=== PATIENT | female | born 1945 | race Caucasian/White ===

== ENCOUNTER 2025-07-09 08:51 | Emergency (ER) | payer MEDICARE ==
[~2025-07-09] VITALS: Ht 162.6 cm; Wt 59.0 kg
--- NOTE | 2025-07-09 09:07 | Physician Documentation ---
History of Present Illness General Chief Complaint: Weakness Stated Complaint: WEAKNESS Time Seen by MD: 09:05 Source: patient Mode of Arrival: EMS History of Present Illness Initial Comments 79F with PMH HTN, COPD, UTI, CKD stage II, breast cancer, brought in by EMS for 3 days of progressive weakness. She was diagnosed with a UTI last week and given antibiotics, but did not start them until Wednesday. Since then she has had progressive weakness, loss of appetite, and felt fatigued. She has been trying to drink fluids. She endorses fever, chills, diaphoresis, urinary frequency, urinary incontinence, abdominal discomfort, frequent diarrhea, and occasionally feeling her heart race. She states she feels cold. She also endorses some confusion as of this morning. She denies SOB, chest pain, nausea, vomiting. Timing/Duration: days Medication Reconciliation Allergies: Coded Allergies: gluten (Verified Allergy, Unknown, 07/09/25) Past Medical History Past Medical History: Vertigo, Hypertension, COPD (well-controlled), Chronic Kidney Disease (stage II), UTI, Breast Cancer Other Past Medical History: chronic pruritis Review of Systems All Other Systems at this time: Reviewed and Negative Physical Exam Physical Exam Vital Signs: Temperature: 99.4, Source: Oral, Heart Rate: 106, Respiratory Rate: 14, BP: 172/91, Pulse Oximetry: 92, Weight: 59.000 Oxygen Flow Rate: 0 Physical Exam VITALS: Reviewed and as above. GENERAL: Alert, appears dry. HEENT: Normocephalic, atraumatic, PERRL, EOMI, dry mucosa, no erythema RESPIRATORY: Lungs clear, normal breath sounds, no respiratory distress. CHEST: No accessory muscle use, no retractions CV: Regular rate, rhythm, no edema, no murmur, No: JVD. Tachycardia GI: Soft, no rebound, guarding, or rigidity. Tenderness to deep palpation BACK: No CVA tenderness, or swelling MUSCULOSKELETAL No deformities, no edema SKIN: Excoriations & crusting on bilateral lower extremities, from ankles up to the level of the mid-bloom, erythematous, no edema. NEURO: Oriented x4, No motor or sensory deficit PSYCH: Normal mood and affect, no agitation Progress Results/Orders Results/Orders Orders - OHLJOSE MIGUEL DUENAS MD Electrocardiogram (07/09/25 09:01) Chest,Single View (07/09/25 12:18) Completed Orders - OHLFSJOSE MIGUEL MD Cbc/Diff (07/09/25 09:34) BMP (07/09/25 09:34) Normal Saline 1000ml (0.9% Sodium Chlori (07/09/25 09:35) Procalcitonin (07/09/25 09:34) Ceftriaxone/V8i-Wfokbfza 1gm (Rocephin 1 (07/09/25 09:35) Electrocardiogram (07/09/25 09:01) Normal Saline 1000ml (0.9% Sodium Chlori (07/09/25 12:20) Chest,Single View (07/09/25 12:18) Ua W/Microscopic, Cult If Ind (07/09/25 12:38) Vital Signs 07/09/25 07/09/25 07/09/25 07/09/25 08:54 09:53 10:40 12:33 Temp 99.4 Pulse 106 97 92 Resp 14 18 22 16 B/P (MAP) 172/91 158/65 (96) 165/85 (111) Pulse Ox 92 93 96 O2 Flow Rate 0 0 0 07/09/25 15:25 Temp 98.6 Pulse 72 Resp 16 B/P (MAP) 134/78 Pulse Ox 99 Laboratory Tests Test 07/09/25 09:38 07/09/25 12:38 White Blood Count 7.6 Red Blood Count 4.47 Hemoglobin 14.3 Hematocrit 42.1 Mean Corpuscular Volume 94.2 Mean Corpuscular Hemoglobin 32.0 H Mean Corpuscular Hemoglobin Concent 34.0 Red Cell Distribution Width 14.5 Platelet Count 176 Mean Platelet Volume 9.1 Neutrophils (%) (Auto) 84.7 H Lymphocytes (%) (Auto) 4.7 L Monocytes (%) (Auto) 8.6 Eosinophils (%) (Auto) 1.5 Basophils (%) (Auto) 0.5 Neutrophils # (Auto) 6.4 Lymphocytes # (Auto) 0.4 L Monocytes # (Auto) 0.7 Eosinophils # (Auto) 0.1 Basophils # (Auto) 0.0 CBC Comment Sodium Level 139 Potassium Level 4.1 Chloride Level 102 Carbon Dioxide Level 26.9 Anion Gap 10 Blood Urea Nitrogen 17 Creatinine 1.12 H Estimated GFR/1.73 m2 47 BUN/Creatinine Ratio 15.2 Glucose Level 105 H Calcium Level 9.3 Albumin 3.8 Procalcitonin < 0.05 Chemistry Comments Urine Specimen Description Cln catch midstream Urine Color Yellow Urine Clarity Clear Urine pH 6.0 Urine Specific [place] 1.015 Urine Protein Negative Urine Glucose (UA) Negative Urine Ketones 15 H Urine Occult Blood Large H Urine Nitrite Negative Urine Bilirubin Negative Urine Urobilinogen 0.2 Urine Leukocyte Esterase Negative Urine RBC 3-10 Urine WBC 0-4 Urine Squamous Epithelial Cells Many Urine Transitional Epithelial Cells Few Urine Bacteria Few Urine Mucus Few Urine Culture Indicated Not ind Volume Urine Centrifuged 10 ml Urine Comment EKG/XRAY/CT/US/VASC/MRI Chest X-Ray : Additional Comments [address] [place], [place] - [address] DIAGNOSTIC RADIOLOGY Patient: AIDAN URIBE Medical Record: [id number] [facility] : 1945, Age: 79 Sex: Female Location: ER Patient Status: [facility] ER Service Date/Time: 07/09/25/ 8 Ordering Physician: JOSE MIGUEL HOPE MD Exam: CHEST,SINGLE VIEW DI CHEST,SINGLE VIEW, HISTORY: sob COMPARISON: None None TECHNICAL DATA: 1 view of the chest was obtained. FINDINGS: Lines and tubes: None Cardiomediastinal silhouette: normal Pulmonary vasculature: normal Lung expansion: normal Lung airspace: normal Lung interstitium: normal Pleura: normal Pneumothorax: no Bones: Unremarkable Other: no IMPRESSION: No acute intrathoracic abnormality. Electronically Signed by:FROYLAN MORTON MD Date & Time: 07/09/251244 Dictated by: FROYLAN MORTON MD Dictation date and time: 07/09/25 122 Primary Care Provider: NO PRIMARY CARE PROVIDER cc: JOSE MIGUEL HOPE MD ~ Medical Decision Making Additional information obtaine: old records Findings The patient is a [age]-year-old female who was diagnosed with a UTI a week ago who was brought in for weakness, the patient was clinically dehydrated she was hydrated in the emergency department and she was also given a dose antibiotics for her UTI, her labs were unremarkable the patient is comfortable and in no distress and at this point has improved, her urine does not show active infection in her labs were unremarkable. The patient's pulse oximetry was interpreted as normal and adequate the patient the patient's prior hospitalizations has been reviewed the patient will be discharged with instructions to follow up as an outpatient. And return for worsening of her symptoms. The patient's quality assurance monitor was interpreted as a sinus rhythm and the patient's pulse oximetry was interpreted as normal and adequate. The patient's EKG was interpreted as a sinus rhythm with a rate of [address] abnormalities. With a normal axis, the patient's EKG was interpreted as a borderline EKG. Differential Diagnosis UTI, pneumonia, sepsis, hypokalemia Departure Disposition: 01 HOME / SELF CARE / HOMELESS Impression: Primary Impression: Dehydration Condition: Fair Discharge Instructions: Dehydration, Adult Referrals: NO PRIMARY CARE PROVIDER (PCP) Signature Scribe Signature: No scribe Attestation: The note accurately reflects work and decisions made by me.Jose Miguel Hope MD 07/10/25 07:00 JOSE MIGUEL HOPE MD Jul 09, 2025 09:07
[2025-07-09 09:55] LABS: MEAN PLATELET VOLUME 9.1 FL (7.4-10.4); RED CELL DISTRIBUTION WIDTH 14.5 % (11.5-14.5)
[2025-07-09 09:57] LABS: CREATININE 1.12 MG/DL (0.40-0.90); TOTAL CARBON DIOXIDE 26.9 MMOL/L (24-32); eCRCL 36 ML/MIN; eGFR 47 ML/MIN
[2025-07-09] MEDS: normal saline 1000ML IV soln IVB ONE ×2 (10:37→12:30)
[2025-07-09] MEDS: CefTRIAXone/D5W-Rocephin 1gm 50 ML IV ONE (10:37)
--- NOTE | 2025-07-09 11:07 | ELECTROCARDIOGRAPH REPORT ---
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 AMANUEL Singh Measurements Intervals [place] Rate: 103 P: 80 RI: 189 QRS: 61 QRSD: 88 T: 72 QT: 336 QTc: 440 Interpretive Statements Sinus tachycardia Probable left atrial enlargement Baseline wander in lead(s) V1 Electronically Signed On 07-09-2025 17:35:[address] AMANUEL Singh Please click the below link to view image of tracing.
[2025-07-09 12:47] LABS: LEUKOCYTE ESTERASE ,URINE NEGATIVE (Neg); NITRITES, URINE NEGATIVE (Neg); OCCULT BLOOD,URINE LARGE (Neg)
--- NOTE | 2025-07-09 12:48 | RADIOLOGY REPORT ---
DI CHEST,SINGLE VIEW, HISTORY: sob COMPARISON: None None TECHNICAL DATA: 1 view of the chest was obtained. FINDINGS: Lines and tubes: None Cardiomediastinal silhouette: normal Pulmonary vasculature: normal Lung expansion: normal Lung airspace: normal Lung interstitium: normal Pleura: normal Pneumothorax: no Bones: Unremarkable Other: no IMPRESSION: No acute intrathoracic abnormality.
[2025-07-09 12:53] LABS: UA COLLECTION TYPE CLN CATCH MIDSTREAM
[2025-07-09 12:59] LABS: MUCUS STRANDS FEW /LPF (Neg); SQUAMOUS EPITHELIAL CELL,UR MANY /LPF (FEW)
[2025-07-09 15:25] VITALS: BP 134/78; PULSE 72; RESP 16; TEMP 98.6; O2SAT 99
== END 2025-07-09 15:27 | disposition home or self-care (01) ==
LOC: ER 08:53
DX: E86.0 Dehydration (principal); I12.9 Hypertensive chronic kidney disease with stage 1 through stage 4 chronic kidney disease, or unspecified chronic kidney disease; N18.2 Chronic kidney disease, stage 2 (mild); J44.9 Chronic obstructive pulmonary disease, unspecified; Z85.3 Personal history of malignant neoplasm of breast; Z87.440 Personal history of urinary (tract) infections
CPT/HCPCS: 36415; 71045; 80048; 81001; 84145; 85025; 93005; 96361; 96365; 99285; J0696; J7030

== ENCOUNTER 2025-08-08 12:47 | Emergency (ER) | payer MEDICARE ==
[~2025-08-08] VITALS: Ht 162.6 cm; Wt 65.9 kg
[2025-08-08 13:21] VITALS: TEMP 99.5
--- NOTE | 2025-08-08 13:21 | ELECTROCARDIOGRAPH REPORT ---
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 Fanny Rai Measurements Intervals [place] Rate: 88 P: 79 W[place]: 160 QRS: 50 QRSD: 90 T: 40 QT: 359 QTc: 435 Interpretive Statements Sinus rhythm Electronically Signed On 08-08-2025 18:10:[address] Fanny Rai Please click the below link to view image of tracing.
[2025-08-08 13:41] LABS: MEAN PLATELET VOLUME 8.9 FL (7.4-10.4); RED CELL DISTRIBUTION WIDTH 14.9 % (11.5-14.5)
--- NOTE | 2025-08-08 13:41 | RADIOLOGY REPORT ---
EXAM: DI CHEST,SINGLE VIEW HISTORY: CP TECHNIQUE: 1 view of the chest COMPARISON: DI CHEST,SINGLE VIEW on DOS: 07/09/25 FINDINGS/IMPRESSION: LUNGS: No pleural effusion, consolidation, or pneumothorax. MEDIASTINUM: Unremarkable. BONES: No acute osseous abnormality. OTHER: None.
--- NOTE | 2025-08-08 14:07 | Physician Documentation ---
History of Present Illness General Chief Complaint: Mechanical Fall Stated Complaint: FALL Time Seen by MD: 14:01 History of Present Illness Initial Comments 79F with PMH HTN, COPD, UTI, CKD stage II, breast cancer, brought in by EMS for evaluation status post mechanical fall while she was getting herself off the couch. Reports she had socks on his slipped on the hardwood floor. Landed on her bump. There was no loss of consciousness. Was able to get back up so she activated 911. Patient has a excoriated lesions to pyelo extremities which she states she has the being managed. Additionally has a secondary complaint of a sore throat. No recent myalgias, fevers or rigors. She is accompanied to Emergency Department with her daughter. Medication Reconciliation Allergies: Coded Allergies: gluten (Verified Allergy, Unknown, 08/08/25) Past Medical History Past Medical History: Vertigo, Hypertension, COPD, Chronic Kidney Disease, UTI, Breast Cancer Physical Exam Physical Exam Vital Signs: RN Vital Signs have been reviewed: Yes, Temperature: 99.5, Source: Oral, Heart Rate: 86, Respiratory Rate: 17, BP: 168/73, Pulse Oximetry: 94, Weight: 65.910 Oxygen Flow Rate: 0 General Appearance: alert, WD/WN, no apparent distress Head: normal inspection Face: normal inspection Pupils/EOM/Fundus: PERRLA Nose: normal inspection Oropharynx: normal inspection Neck: non-tender Respiratory: lungs clear Chest: no accessory muscle use Gastrointestinal: non-tender Back: normal inspection Extremities: normal range of motion, normal capillary refill, pelvis stable, other (Leg length discrepancies and no pelvic pain) Neurologic: oriented x4 Motor / Sensory: no motor deficit, no sensory deficit Psychiatric: normal mood/affect Skin: normal color, other (Bilateral lower extremity excoriated lesions with erythema) Progress Results/Orders Results/Orders Orders - AMBAR CHAAP Cult Throat + R/O Beta Strep (08/08/25 15:31) Hs Troponin I W Calculations (08/08/25 16:20) Completed Orders - AMBAR CHAPA Metoprolol Succinate Er Tablet (Toprol X (08/08/25 14:15) Doxycycline 100mg Capsule (Vibramycin 10 (08/08/25 14:15) Strep A Rapid (08/08/25 14:15) Medications Received in ER Medications (Trade) Dose Ordered Sig/Selvin Route PRN Reason Start Time Stop Time Status Last Admin Dose Admin (Toprol XL (24-hour) tablet) 50 mg ONCE STAT PO 08/08/25 14:15 08/08/25 14:20 DC 08/08/25 15:03 50 MG (VIBRAMYCIN 100mg capsule) 100 mg ONCE STAT PO 08/08/25 14:15 08/08/25 14:20 DC 08/08/25 15:03 100 MG Vital Signs 08/08/25 08/08/25 08/08/25 08/08/25 13:03 13:21 14:17 14:18 Temp 99.4 99.5 Pulse 94 86 89 Resp 18 17 12 16 B/P (MAP) 164/80 168/73 (104) 167/79 (108) Pulse Ox 94 94 95 O2 Flow Rate 0 0 FiO2 21 08/08/25 08/08/25 08/08/25 14:18 15:18 15:41 Pulse 89 85 Resp 19 15 B/P (MAP) 183/71 (108) 163/74 (103) Pulse Ox 94 95 94 O2 Delivery Room Air* O2 Flow Rate 0 0 0 FiO2 21 21 Laboratory Tests Test 08/08/25 13:32 08/08/25 13:59 08/08/25 14:10 08/08/25 14:55 White Blood Count 5.5 Red Blood Count 4.41 Hemoglobin 13.8 Hematocrit 41.0 Mean Corpuscular Volume 93.0 Mean Corpuscular Hemoglobin 31.4 H Mean Corpuscular Hemoglobin Concent 33.7 Red Cell Distribution Width 14.9 H Platelet Count 184 Mean Platelet Volume 8.9 Neutrophils (%) (Auto) 71.2 Lymphocytes (%) (Auto) 13.8 L Monocytes (%) (Auto) 14.2 H Eosinophils (%) (Auto) 0.2 Basophils (%) (Auto) 0.6 Neutrophils # (Auto) 3.9 Lymphocytes # (Auto) 0.8 L Monocytes # (Auto) 0.8 Eosinophils # (Auto) 0.0 Basophils # (Auto) 0.0 CBC Comment Chemistry Comments Sodium Level 136 Potassium Level 4.2 Chloride Level 100 Carbon Dioxide Level 27.7 Anion Gap 8 Blood Urea Nitrogen 18 Creatinine 1.14 H Estimated GFR/1.73 m2 46 BUN/Creatinine Ratio 15.8 Glucose Level 110 H Calcium Level 9.4 Troponin I High Sensitivity 15 14 Pro-B-Type Natriuretic Peptide 1469 H Albumin 3.8 Urine Specimen Description Cln catch midstream Urine Color Yellow Urine Clarity Clear Urine pH 6.5 Urine Specific [place] 1.020 Urine Protein 100 H Urine Glucose (UA) Negative Urine Ketones Trace H Urine Occult Blood Moderate H Urine Nitrite Negative Urine Bilirubin Negative Urine Urobilinogen 0.2 Urine Leukocyte Esterase Negative Urine RBC 20-50 Urine WBC 0-4 Urine Squamous Epithelial Cells Moderate Urine Bacteria None seen Urine Mucus None seen Urine Culture Indicated Not ind Volume Urine Centrifuged 10 ml Urine Comment Troponin I High Sens Percent Delta 6 Troponin I Hi Sens Absolute Change -1 Test 08/08/25 15:00 Group A Streptococcus Rapid Negative Medical Decision Making Additional information obtaine: old records Findings 71-year-old female brought in for evaluation after sliding off the couch due to having slipped presenting [facility] floor. No obvious long bone injuries requiring extremity imaging. Screening labs chest x-ray all reassuring. Physical exam shows excoriated lower leg lesions for which she has been treated with hydrocortisone yet now has secondary infection requiring antibiotic coverage. She will receive 1st dose doxycycline emergency department. Group a beta strep screening negative. Additionally has not had her metoprolol today for which I will be covering her with her 50 mg of metoprolol. She is resting comfortably and families in the room. Screening labs have all been reviewed requiring no further intervention. She safe for discharge. Differential Diagnosis Differentials include but not limited to, bilateral lower leg secondary infection, status post mechanical fall, electrolyte derangement, UTI, CKD, and other unforeseen pathologies. Departure Disposition: 01 HOME / SELF CARE / HOMELESS Impression: Primary Impression: Fall Qualified Codes: W19.XXXA - Unspecified fall, initial encounter Additional Impressions: Hematuria Qualified Codes: R31.1 - Benign essential microscopic hematuria Bilateral lower leg cellulitis Pharyngitis Qualified Codes: J02.9 - Acute pharyngitis, unspecified Discharge Instructions: Fall Prevention in the Home, Adult, [id number] Additional Instructions: Your screening labs are relatively all reassuring in the emergency department. Please address the hematuria with your primary care physician and begin antibiotic for the lower leg infection secondary to scratching. Return to the emergency department as needed. Thank you for visiting in the emergency department of [facility] and has a happened a year. Referrals: NO PRIMARY CARE PROVIDER (PCP) Prescriptions Doxycycline Monohydrate (Doxycycline Monohydrate) 100 Mg Capsule 100 MG PO BID, #14 CAP may sub doxycycline hyclate or azithromycin z-pack as prescribed Prov: AMBAR CHAPA PAC 08/08/25 Education Educated: Patient, Family Educated regarding: diagnosis, treatment Signature Scribe Signature: . Attestation: . AMBAR CHAPA Aug 08, 2025 14:07
[2025-08-08 14:24] LABS: LEUKOCYTE ESTERASE ,URINE NEGATIVE (Neg); NITRITES, URINE NEGATIVE (Neg); OCCULT BLOOD,URINE MODERATE (Neg)
[2025-08-08 14:26] LABS: UA COLLECTION TYPE CLN CATCH MIDSTREAM
[2025-08-08 14:31] LABS: MUCUS STRANDS NONE SEEN /LPF (Neg); SQUAMOUS EPITHELIAL CELL,UR MODERATE /LPF (FEW)
[2025-08-08 14:33] LABS: CREATININE 1.14 MG/DL (0.40-0.90); PRO BRAIN NATRIURETIC PEPTIDE 1469 PG/ML (0-450); TOTAL CARBON DIOXIDE 27.7 MMOL/L (24-32); eCRCL 35 ML/MIN; eGFR 46 ML/MIN
[2025-08-08] MEDS: metoprolol succinate 25mg (24-HOUR) SR. Tablet PO STA (15:03)
[2025-08-08] MEDS: DOXYCYCLINE 100MG CAPSULE PO STA (15:03)
[2025-08-08 15:31] LABS: STREP A SCREEN NEGATIVE (Neg)
[2025-08-08] MEDS ORDERED: DOXY100C43 PO (15:56)
[2025-08-08 16:30] VITALS: BP 163/73; PULSE 93; RESP 16; O2SAT 93
== END 2025-08-08 16:33 | disposition home or self-care (01) ==
LOC: ER 12:47
DX: L03.115 Cellulitis of right lower limb (principal); L03.116 Cellulitis of left lower limb; J02.9 Acute pharyngitis, unspecified; R31.9 Hematuria, unspecified; J44.9 Chronic obstructive pulmonary disease, unspecified; I12.9 Hypertensive chronic kidney disease with stage 1 through stage 4 chronic kidney disease, or unspecified chronic kidney disease; N18.9 Chronic kidney disease, unspecified; Z87.440 Personal history of urinary (tract) infections; Z85.3 Personal history of malignant neoplasm of breast; W01.0XXA Fall on same level from slipping, tripping and stumbling without subsequent striking against object, initial encounter; Y93.89 Activity, other specified; Y92.89 Other specified places as the place of occurrence of the external cause; Y99.8 Other external cause status
CPT/HCPCS: 36415; 71045; 80048; 81001; 83880; 84484; 85025; 87081; 87880; 93005; 99285